=== PATIENT | female | born 1960 | race Caucasian/White ===

== ENCOUNTER 2017-02-16 18:25 | Emergency (ER) | payer OTHER, BC ==
[~2017-02-16] VITALS: Ht 167.6 cm; Wt 67.8 kg
[2017-02-16 18:33] VITALS: BP 159/94
[2017-02-16] MEDS ORDERED: MOTRIN800 MG PO (19:51)
== END 2017-02-16 20:03 | disposition home or self-care (01) ==
LOC: EME 18:25
DX: S70.01XA Contusion of right hip, initial encounter (principal); W18.30XA Fall on same level, unspecified, initial encounter; Y92.59 Other trade areas as the place of occurrence of the external cause; G35 Multiple sclerosis; K50.90 Crohn's disease, unspecified, without complications; Z86.718 Personal history of other venous thrombosis and embolism; Z88.0 Allergy status to penicillin; Z88.1 Allergy status to other antibiotic agents
CPT/HCPCS: 73502; 99281; 99284